=== PATIENT | female | born 1980 | race Caucasian/White ===

== ENCOUNTER → 2019-09-02 | Outpatient (CLI) | payer OTHER ==
[~2019-09-02] MED LIST: GADOTERATE 7.5 MMOL/15 ML SYR ONE
== END | disposition home or self-care (01) ==
LOC: RAD 12:11
PROVIDERS: ATTEND Family Medicine
DX: G93.89 Other specified disorders of brain (principal); G91.9 Hydrocephalus, unspecified
CPT/HCPCS: 70553; A9575

== ENCOUNTER → 2020-02-19 | Outpatient (CLI) | payer OTHER ==
[~2020-02-19] MED LIST changes: +GADOTERATE 10 MMOL/20 ML SYR ONE; -GADOTERATE 7.5 MMOL/15 ML SYR ONE
== END | disposition home or self-care (01) ==
LOC: CFH 14:57
PROVIDERS: ATTEND Neurological Surgery
DX: D49.6 Neoplasm of unspecified behavior of brain (principal)
CPT/HCPCS: 70553; A9575

== ENCOUNTER 2020-10-31 22:45 | Emergency (ER) | payer OTHER ==
[~2020-10-31] VITALS: Ht 172.7 cm; Wt 77.0 kg
--- NOTE | 2020-11-01 00:49 | NUR ---
PT C/O OF HAVING TROUBLE SWALLOWING. PT STATES SHE BELIEVES HER THROAT FEELS SWOLLEN. PT STATES SOMETHING MIGHT BE BLOCKING IN HER THROAT. DENTAL INFECTION LAST WEEKEND AND IS ON ATX FOR IT AND SAYS IT FEELS WAY BETTER. ATTACHED TO MONITORS, VSS, RAVINDER. BED IN LOW, RAILS ENGAGED, CALL LIGHT ON LAP. [facility]
[2020-11-01] MEDS ORDERED: MAALOX/HYOSCYAMINE/LIDOCAINE 45 ML BTL ONE (01:15)
[2020-11-01] MEDS ORDERED: MAALOX/HYOSCYAMINE/LIDOCAINE 45 ML BTL PO ONE (01:30)
[2020-11-01 02:37] VITALS: BP 116/68
--- NOTE | 2020-11-01 02:37 | NUR ---
Patient/Caregiver given discharge instructions and they have confirmed that they understand the instructions. Patient ambulatory with steady gait. NAD, all questions answered appropriately, denies additional needs at this time. No personal belongings left in room after discharge.
== END 2020-11-01 02:39 | disposition home or self-care (01) ==
LOC: ED 23:59
DX: R09.89 Other specified symptoms and signs involving the circulatory and respiratory systems (principal)
CPT/HCPCS: 70360; 99283